=== PATIENT | female | born 1970 | race Caucasian/White ===

== ENCOUNTER 2021-03-01 16:56 | Emergency (ER) | payer MEDICAID ==
[~2021-03-01] VITALS: Ht 160 cm; Wt 61.3 kg
[2021-03-01 20:34] LABS: MICROSCOPIC INDICATED
[2021-03-01 21:00] LABS: BASOPHILS % (AUTO) 2 % (0-1); EOSINOPHILS % (AUTO) 2 % (1-7); LYMPHOCYTES % (AUTO) 33 % (22-44); MEAN CORPUSCULAR HEMOGLOBIN 35.7 pg (27.0-34.8); MEAN CORPUSCULAR HGB CONC 33.9 g/dL (32.4-35.8); MEAN PLATELET VOLUME 8.5 fL (7.4-10.4); MONOCYTES % (AUTO) 5 % (2-9); NEUTROPHILS % (AUTO) 57 % (42-75); PLATELET COUNT 357 x10^3/uL (130-400); RED BLOOD COUNT 4.17 x10^6/uL (3.82-5.3); RED CELL DISTRIBUTION WIDTH 14.7 % (9.6-15.2)
[2021-03-01 21:07] LABS: ALBUMIN 3.9 g/dL (3.4-5.0); ANION GAP 6 mmol/L (5-15); CALCIUM 9.5 mg/dL (8.5-10.1); CHLORIDE 104 mmol/L (98-107); CREATININE 1.04 mg/dL (0.55-1.02)
--- NOTE | 2021-03-01 22:28 | NUR ---
NIL X 1 WHEN CALLED FOR REPEAT VS.
--- NOTE | 2021-03-02 00:01 | NUR ---
hydrochloric area supervisor note: Pt to room from lobby.
--- NOTE | 2021-03-02 00:03 | NUR ---
ASSESSMENT MADE. CHART UP FOR MD TO SEE.
[2021-03-02] MEDS ORDERED: ONDANSETRON 2MG/ML, 2ML ONE (00:38)
[2021-03-02] MEDS ORDERED: MORPHINE SULFATE 4 MG/ML, 1ML ONE (00:39)
[2021-03-02] MEDS ORDERED: CEFTRIAXONE 1,000 MG in DEXTROSE 5% 50 ML IVPB ONE (01:00)
[2021-03-02] MEDS ORDERED: ONDANSETRON 2MG/ML, 2ML IVPush ONE (01:00)
[2021-03-02] MEDS ORDERED: MORPHINE SULFATE 4 MG/ML, 1ML IVPush ONE (01:00)
--- NOTE | 2021-03-02 01:00 | NUR ---
IV placed. medicated for pain and nausea. antibitioc started.
[2021-03-02] MEDS ORDERED: OXYcodone/APAP 5/325MG TABLET ONE (01:50)
[2021-03-02] MEDS ORDERED: OXYcodone/APAP 5/325MG TABLET PO ONE (02:00)
--- NOTE | 2021-03-02 02:06 | NUR ---
re-evaluation done. patient feeling a bit better. re-medicated for pain. discharged with prescriptions and instruction. verbalized understanding.
[2021-03-02 02:07] VITALS: BP 127/98
== END 2021-03-02 02:10 | disposition home or self-care (01) ==
LOC: ED 17:01
DX: N10 Acute pyelonephritis (principal); F17.210 Nicotine dependence, cigarettes, uncomplicated
CPT/HCPCS: 36415; 76770; 80048; 81001; 82040; 85025; 87077; 87086; 87186; 96365; 96375; 99284; 99406; J0696; J2270; J2405

== ENCOUNTER 2021-03-21 11:52 | Day surgery (SDC) | payer BC, MEDICAID ==
[~2021-03-21] VITALS: Ht 161.3 cm; Wt 59.9 kg
[2021-03-21] MEDS ORDERED: IBUP-1223 PO (12:44)
[2021-03-21] MEDS ORDERED: CEFD300C37 PO (12:44)
[2021-03-21] MEDS ORDERED: CHLORHEXIDINE 15 ML UDC ONE (12:50)
[2021-03-21 12:59] LABS: MICROSCOPIC INDICATED
[2021-03-21] MEDS ORDERED: CHLORHEXIDINE 15 ML UDC PO ONE (13:00)
[2021-03-21] MEDS ORDERED: LACTATED RINGERS 1,000 ML IV SCH (13:00)
[2021-03-21] MEDS ORDERED: FENTANYL PF 100 MCG/2ML ONE ×2 (13:19→15:02)
[2021-03-21] MEDS ORDERED: MIDAZOLAM 1 MG/ML, 2ML ONE (13:19)
[2021-03-21 13:52] LABS: INTERNATIONAL NORMALIZED RATIO 1.01 (0.93-1.1); PROTHROMBIN TIME 10.8 Seconds (9.6-11.5)
[2021-03-21] MEDS ORDERED: LORazepam 2 MG/ML, 1ML IVPush PRN (14:30)
[2021-03-21] MEDS ORDERED: ONDANSETRON 2MG/ML, 2ML IVPush PRN (14:30)
[2021-03-21] MEDS ORDERED: PROMETHAZINE 25 MG SUPP PR PRN (14:30)
[2021-03-21] MEDS ORDERED: METHOCARBAMOL 1,000 MG in DEXTROSE 5% 100 ML IV PRN (14:30)
[2021-03-21] MEDS ORDERED: OXYcodone 5 MG/5 ML ORAL.SOL UDC PO PRN (14:30)
[2021-03-21] MEDS ORDERED: ACETAMINOPHEN 325 MG TABLET PO PRN (14:30)
[2021-03-21] MEDS ORDERED: LABETALOL 5MG/ML, 20ML IV PRN (14:30)
[2021-03-21] MEDS ORDERED: PROMETHAZINE 25 MG/ML, 1ML IVPush PRN (14:30)
[2021-03-21] MEDS ORDERED: hydrALAzine 20 MG/ML, 1ML IV PRN (14:30)
[2021-03-21] MEDS ORDERED: ALBUTEROL/IPRATROPIUM 2.5MG/0.5MG, 3 ML NPPB PRN (14:30)
[2021-03-21] MEDS ORDERED: METOPROLOL 1 MG/ML, 5ML IV PRN (14:30)
[2021-03-21] MEDS ORDERED: HYDROmorphone 1 MG/ML, 1ML INJ IVPush PRN (14:30)
[2021-03-21] MEDS ORDERED: ONDANSETRON 2MG/ML, 2ML ONE (14:31)
[2021-03-21] MEDS ORDERED: LABETALOL 5MG/ML, 20ML ONE (14:31)
[2021-03-21] MEDS ORDERED: PROPOFOL 10 MG/ML, 20ML ONE (14:31)
[2021-03-21] MEDS ORDERED: DEXAMETHASONE 4 MG/ML, 1ML ONE (14:31)
[2021-03-21] MEDS ORDERED: CEFAZOLIN 1,000 MG ONE (14:31)
[2021-03-21] MEDS ORDERED: hydrALAzine 20 MG/ML, 1ML ONE (14:59)
[2021-03-21] MEDS: FENTANYL PF 100 MCG/2ML IV PRN ×2 (15:05→15:10)
[2021-03-21] MEDS ORDERED: OXYcodone 5 MG/5 ML ORAL.SOL UDC ONE (15:12)
[2021-03-21] MEDS ORDERED: MEPERIDINE/PF 25MG/ML,1ML ONE ×2 (15:17→15:43)
[2021-03-21] MEDS: MEPERIDINE/PF 25MG/0.5ML IVPush PRN ×2 (15:19→15:40)
[2021-03-21] MEDS ORDERED: HYDROmorphone 2 MG/ML, 1ML ONE (15:59)
== END 2021-03-21 17:10 | disposition home or self-care (01) ==
LOC: OUT 11:52
PROVIDERS: ATTEND Urology
DX: N20.1 Calculus of ureter (principal); N39.0 Urinary tract infection, site not specified; I10 Essential (primary) hypertension; Z20.822 Contact with and (suspected) exposure to COVID-19; Z79.01 Long term (current) use of anticoagulants; Z79.899 Other long term (current) drug therapy; Z90.5 Acquired absence of kidney
CPT/HCPCS: 36415; 52353; 74018; 81001; 85610; 87086; 87635; C1769; J0360; J0690; J1100; J1170; J2175; J2250; J2405; J2704; J3010; J7120; 76000

== ENCOUNTER 2021-04-15 09:17 | Emergency (ER) | payer MEDICAID ==
[~2021-04-15] VITALS: Ht 160 cm; Wt 61.5 kg
[~2021-04-15 09:17] MED LIST: CEFD300C37 PO; IBUP-1223 PO
--- NOTE | 2021-04-15 10:04 | NUR ---
CALLED FOR TRIAGE, NO ANSWER
--- NOTE | 2021-04-15 10:42 | NUR ---
CRITICAL CARE SPECIALIST NOTE: PT SEEN BY BRENT REINA, PT NOTED TO BE HYPERTENSIVE, STATES SHE HAS HX HTN BUT STATES SHE IS NOT CURRENTLY ON ANTIHYPERTENSIVES. EKG TAKEN IN TRIAGE, REVIEWED BY EDMD. PT DENIES CHEST PAIN. PT TO LOBBY AT THIS TIME ED IS AT [facility].
--- NOTE | 2021-04-15 12:30 | NUR ---
Pt called for room from lobby, no answer.
--- NOTE | 2021-04-15 13:14 | NUR ---
refinery operator assistant note: Pt to room from [facility] [place], ambulatory with steady gait, ANITRA.
[2021-04-15] MEDS ORDERED: OXYcodone/APAP 5/325MG TABLET PO ONE ×2 (13:30→15:00)
[2021-04-15 13:48] LABS: BASOPHILS % (AUTO) 1 % (0-1); EOSINOPHILS % (AUTO) 2 % (1-7); LYMPHOCYTES % (AUTO) 32 % (22-44); MEAN CORPUSCULAR HEMOGLOBIN 34.6 pg (27.0-34.8); MEAN CORPUSCULAR HGB CONC 34.6 g/dL (32.4-35.8); MEAN PLATELET VOLUME 8.5 fL (7.4-10.4); MONOCYTES % (AUTO) 6 % (2-9); NEUTROPHILS % (AUTO) 60 % (42-75); PLATELET COUNT 254 x10^3/uL (130-400); RED CELL DISTRIBUTION WIDTH 14.6 % (9.6-15.2)
[2021-04-15] MEDS ORDERED: OXYcodone/APAP 5/325MG TABLET ONE ×2 (13:48→15:38)
[2021-04-15 13:59] LABS: ALBUMIN 3.7 g/dL (3.4-5.0); ANION GAP 3 mmol/L (5-15); CALCIUM 9.5 mg/dL (8.5-10.1); CHLORIDE 108 mmol/L (98-107); CREATININE 0.75 mg/dL (0.55-1.02)
--- NOTE | 2021-04-15 14:03 | NUR ---
PT ATTACHED TO ALL MONITORS, PT A&O, RESPS EVEN AND UNLABORED, NSR ON FIELD INSTALLER WITH NO ECTOPY. FAMILY AT BEDSIDE. UA SENT, AWAITING LAB RESULTS AND DISPO.
[2021-04-15 14:21] LABS: MICROSCOPIC AUTO
[2021-04-15] MEDS ORDERED: LISINOPRIL 20 MG TABLET ONE (14:27)
[2021-04-15] MEDS ORDERED: LISINOPRIL 20 MG TABLET PO ONE (14:30)
--- NOTE | 2021-04-15 14:46 | NUR ---
PT NOTES ARM PAIN NOW 8/10 DOWN FROM 1010. PT A&O, RESPS EVEN AND UNLABORED, NSR ON OUTDOOR PURSUITS INSTRUCTOR WITH NO ECTOPY. PT TO BE DISCHARGED ONCE BP NORMALIZED. PT DENIES CHEST PAIN/VISION CHANGES/HEADACHE/SOB.
[2021-04-15] MEDS ORDERED: AMLODIPINE 5 MG TABLET PO ONE (15:30)
[2021-04-15] MEDS ORDERED: AMLODIPINE 5 MG TABLET ONE (15:38)
[2021-04-15 16:52] VITALS: BP 168/111
--- NOTE | 2021-04-15 16:53 | NUR ---
repeat bp 168/111, erika daniels notified. amlodipine held per MD instructions. pt states arm pain improved significantly. pt a&o, resps even and unlabored, nsr on monitor technician. pt given dc instructions and script, educated regarding rx for prednisone, lisinopril, amlodipine and norco. pt edcuated regarding neurosurgery follow up. pt given instructions by erika daniels to purchase cervical traction device. pt a&o, resps even and unlabored, nadn at dc.
== END 2021-04-15 16:54 | disposition home or self-care (01) ==
LOC: ED 16:45
DX: M47.892 Other spondylosis, cervical region (principal); M48.02 Spinal stenosis, cervical region; G89.29 Other chronic pain; M25.511 Pain in right shoulder; I10 Essential (primary) hypertension
CPT/HCPCS: 36415; 72050; 72072; 80048; 81001; 82040; 85025; 87086; 93005; 99285